=== PATIENT | male | born 1950 | race Caucasian/White ===

== ENCOUNTER → 2016-08-15 | Outpatient (CLI) | payer BC ==
[~2016-08-15] MED LIST: ACT30 PO; AMLO-110 PO; ASPEC81 PO; GLIP-199 PO; LISI-461 PO; METF-382 PO; MULT-506 PO; ROSU5TAB PO
--- NOTE | 2016-08-15 11:33 | DIAGNOSTIC IMAGING REPORT ---
CHEST 2 VIEWS ROUTINE CLINICAL HISTORY: COUGH COMPARISON STUDY: 05/16/2013 FINDINGS: The heart is normal in size. There is no focal pulmonary consolidation. There is no failure. There are no pleural effusions. There are minor left basilar atelectatic changes. A left basilar opacity is felt to relate to an old left rib fracture.[ IMPRESSION: No active disease in the chest. Electronically signed by: Dutch Rivas M.D. 08/15/2016 11:31 AM Dictated Date/Time: 08/15/2016 11:31 AM
== END | disposition home or self-care (01) ==
LOC: C.RADBC 10:56
PROVIDERS: ATTEND Internal Medicine Geriatric Medicine
DX: R05 Cough (principal)

== ENCOUNTER → 2016-08-26 | Outpatient (CLI) | payer BC | END | disposition home or self-care (01) | LOC: C.LABBC 07:29 | PROVIDERS: ATTEND Nurse Practitioner Adult Health | DX: N40.0 Benign prostatic hyperplasia without lower urinary tract symptoms (principal) ==

== ENCOUNTER → 2016-09-04 | Outpatient (CLI) | payer BC ==
[2016-09-04 10:38] LABS: BLOOD UREA NITROGEN 25 mg/dl (7-18); BUN/CREATININE RATIO 20.6 (10-20); CALCIUM 9.6 mg/dl (8.5-10.1); CARBON DIOXIDE 24 mmol/L (21-32); CHLORIDE 105 mmol/L (98-107); GLUCOSE 71 mg/dl (70-99); POTASSIUM 4.9 mmol/L (3.5-5.1); SODIUM 138 mmol/L (136-145)
--- NOTE | 2016-09-04 12:04 | DIAGNOSTIC IMAGING REPORT ---
CT soft tissue neck combination SOFT TISSUE NECK COMBO CLINICAL HISTORY: K11.21 Parotitis, acute Please get left parotid gland; pt. Had ac parotiditis TECHNIQUE: Transaxial acquisition pre and postcontrast administration. Multi axial reformatted images. COMPARISON STUDY: None FINDINGS: Unenhanced study shows no evidence for abnormal calcifications within the region of the salivary glands. The enhanced component of the study shows a slight degree of hematoma or hyperemia of the left parotid gland compared to the right. A be a trace amount of edema. There is no evidence for abscess or collection. Subcutaneous fat shows no infiltrative change. Submandibular glands are unremarkable. Glottic and subglottic regions are within normal limits. There is no evidence for airway compromise. Sternocleidomastoid musculature is symmetric. There is a 1.3 cm left thyroid nodule. IMPRESSION: 1. Subtle findings of mild inflammatory change of the left parotid. 2. No evidence for abscess or collection. 3. All remaining salivary glands are unremarkable. 4. No abnormal calcifications 5. 1.3 nodule left thyroid Electronically signed by: Arturo Gale M.D. 09/04/2016 12:03 PM Dictated Date/Time: 09/04/2016 11:58 AM
== END | disposition home or self-care (01) ==
LOC: C.CTS 09:56
PROVIDERS: ATTEND Internal Medicine Geriatric Medicine
DX: K11.21 Acute sialoadenitis (principal); I10 Essential (primary) hypertension; E04.1 Nontoxic single thyroid nodule

== ENCOUNTER → 2016-09-06 | Outpatient (CLI) | payer BC ==
[2016-09-06 11:14] LABS: BLOOD UREA NITROGEN 25 mg/dl (7-18); BUN/CREATININE RATIO 19.1 (10-20); CALCIUM 8.8 mg/dl (8.5-10.1); CARBON DIOXIDE 24 mmol/L (21-32); CHLORIDE 105 mmol/L (98-107); GLUCOSE 271 mg/dl (70-99); POTASSIUM 5.1 mmol/L (3.5-5.1); SODIUM 138 mmol/L (136-145)
== END | disposition home or self-care (01) ==
LOC: C.LABBC 07:30
PROVIDERS: ATTEND Internal Medicine Geriatric Medicine
DX: E11.9 Type 2 diabetes mellitus without complications (principal)

== ENCOUNTER → 2016-09-09 | Outpatient (CLI) | payer BC ==
--- NOTE | 2016-09-09 11:26 | DIAGNOSTIC IMAGING REPORT ---
THYROID ULTRASOUND HISTORY: Thyroid nodule E04.1 Solitary thyroid nodulewith FNA-non emergent (per central COMPARISON: 09/04/2016 CT FINDINGS: Right lobe: 4.8 cm maximum dimension. 2 macrocysts measuring no more than 2 mm. No evidence for dominant mass. Left lobe: Maximum dimension 4.7 cm. 1.5 x 1.3 cm complex nodule lower pole. Low suspicion 5 and 4 mm nodules mid and upper pole. Isthmus: No nodules. IMPRESSION: Lower pole left thyroid nodule containing punctate calcifications in having dimensions as noted. Fine-needle aspiration is suggested. Electronically signed by: Arturo Gale M.D. 09/09/2016 11:25 AM Dictated Date/Time: 09/09/2016 11:19 AM
== END | disposition home or self-care (01) ==
LOC: C.ULTRBC 09:57
PROVIDERS: ATTEND Internal Medicine Geriatric Medicine
DX: E04.1 Nontoxic single thyroid nodule (principal)

== ENCOUNTER → 2016-09-18 | Outpatient (CLI) | payer BC ==
--- NOTE | 2016-09-18 12:08 | DIAGNOSTIC IMAGING REPORT ---
Ultrasound guided thyroid aspiration GUIDANCE NEEDLE PLACEMENT CLINICAL HISTORY: LEFT THYROID NODULE, ULTR 09/09/16 thyroid nodule TECHNIQUE: Ultrasound-guided fine-needle aspiration COMPARISON STUDY: Soft tissue neck ultrasound dated 09/09/2016 FINDINGS: Under ultrasound guidance, a total of 3 passes were made to the partially calcified nodule within the posterior left thyroid lobe. The nodule was very hard and echotexture, creating difficulty in accessing the central substance of the nodule. There are no complications. Pathology is pending. IMPRESSION: Left thyroid fine-needle aspiration x3. If results are nondiagnostic due to the texture of the nodule, a six-month ultrasound follow-up is suggested as an alternative Electronically signed by: Arturo Gale M.D. 09/18/2016 12:07 PM Dictated Date/Time: 09/18/2016 12:05 PM
== END | disposition home or self-care (01) ==
LOC: C.ULTR 10:13
PROVIDERS: ATTEND Internal Medicine Geriatric Medicine
DX: E04.1 Nontoxic single thyroid nodule (principal)

== ENCOUNTER → 2016-10-11 | Outpatient (CLI) | payer BC ==
--- NOTE | 2016-10-11 13:06 | Discharge Instructions ---
Discharge Instructions Procedure Procedure Date: Oct 11, 2016. Reason for visit: Thyroid Nodule * To Do*. Discharge Discharge Date: Oct 11, 2016. Discharge Diagnosis: s/p thyroid nodule FNA Instructions Activity Recommendations: No limitations Return to School/Work: no limitations Recommended Home Diet: No Limitations Provider Instructions: ACTIVITY RECOMMENDATIONS: * Rest today. * Resume regular activity in one day. MEDICATIONS: * May take Tylenol or Ibuprofen as needed for pain. DIET: * Resume previous diet. SPECIAL CARE INSTRUCTIONS: Call your doctor if: * Temperature above 101 degrees F. * Pain not relieved by pain medicine ordered. * Increased drainage or redness from incision. * Notify your doctor with any questions or concerns. Call your doctor or go to the nearest Emergency Department if you experience: * Increased chest pain or shortness of breath. FOLLOW UP VISIT: Follow-up with Referring Physician as scheduled. Allergies Coded Allergies: Penicillins (Verified Allergy, Severe, SOB AND THROAT SWELLING, 06/27/16) Azalea Awad Recommendations: Call your doctor if: * Temperature above 101 degrees * Pain not relieved by pain medicine ordered * There is increased drainage or redness from any incision * You have any unanswered questions or concerns. Your Doctors Instructions noted above were prepared by provider Nguyễn Simon. Patient Signature Section: Patient Instructions Signature Page Too Naylor Patient (or Guardian) Signature/Date: I have read and understand the instructions given to me by my caregivers. Caregiver/RN/Doctor Signature/Date: The above-named patient and/or guardian has received patient instructions on this date. + Original Patient Signature Page (only) stays with chart. Please make copy for patient.
--- NOTE | 2016-10-11 13:29 | DIAGNOSTIC IMAGING REPORT ---
ULTRASOUND GUIDED FINE NEEDLE ASPIRATION OF LEFT LOBE THYROID NODULE CLINICAL HISTORY: Left lobe thyroid nodule. COMPARISON STUDY: Thyroid ultrasound September 09, 2016. PROCEDURE: Sonography of the thyroid gland again demonstrated the 1.5 cm nodule within the lower pole of the left thyroid lobe which contains numerous calcifications. This was targeted for fine needle aspiration. The procedure, risks and benefits were discussed with the patient. The patient agreed to the procedure and informed written obtained. The procedure was performed by Dr. Simon following a timeout. Skin overlying the left thyroid lobe was prepped and draped in sterile fashion and local anesthesia was achieved with 1% lidocaine. Under direct ultrasound guidance, 2 25-gauge fine needle aspirations of the nodule were performed. The samples were deemed preliminarily adequate by pathology. The patient tolerated the procedure well and no immediate complications were evident. IMPRESSION: Ultrasound guided fine needle aspiration of 1.5 cm left lobe thyroid nodule. Electronically signed by: Nguyễn Simon M.D. 10/11/2016 1:27 PM Dictated Date/Time: 10/11/2016 1:26 PM
== END | disposition home or self-care (01) ==
LOC: C.ULTR 12:38
DX: E04.1 Nontoxic single thyroid nodule (principal)

== ENCOUNTER → 2016-11-07 | Outpatient (CLI) | payer BC ==
[2016-11-07 13:30] LABS: BASO % 0.3 %; BASO ABS # 0.02 K/uL (0-0.2); COMPLETE YES; EOS % 2.9 %; HEMATOCRIT 39.3 % (42-52); IG% 0.1 %; LYMPH ABS # 1.64 K/uL (1.2-3.4); MEAN CELL VOLUME 93.8 fL (80-100); MEAN CORPUSCULAR HEMOGLOBIN 32.2 pg (25-34); MEAN CORPUSCULAR HGB CONC 34.4 g/dl (32-36); MEAN PLATELET VOLUME 11.2 fL (7.4-10.4); MONO % 10.4 %; NEUT % 62.3 %; PLATELET COUNT 283 K/uL (130-400); RED BLOOD COUNT 4.19 M/uL (4.7-6.1); WHITE BLOOD COUNT 6.84 K/uL (4.8-10.8)
[2016-11-07 14:01] LABS: ESTIMATED AVERAGE GLUCOSE 143 mg/dl; HA1C FLAG Normal (Normal)
[2016-11-07 14:01] LABS: URINE PROTIEN/CREAT RATIO 0.1 (0-0.2)
[2016-11-07 14:46] LABS: BLOOD UREA NITROGEN 31 mg/dl (7-18); BUN/CREATININE RATIO 26.1 (10-20); CARBON DIOXIDE 21 mmol/L (21-32); CHLORIDE 109 mmol/L (98-107); CHOLESTEROL 169 mg/dl (0-200); GLUCOSE 84 mg/dl (70-99); POTASSIUM 4.8 mmol/L (3.5-5.1); SODIUM 139 mmol/L (136-145); TRIGLYCERIDES 132 mg/dl (0-150); VERY LOW DENSITY LIPOPROT CALC 26 mg/dl
[2016-11-07 14:50] LABS: CHOLESTEROL/HDL RATIO 2.9; HDL CHOLESTEROL 58 mg/dl; LDL CHOLESTEROL CALCULATED 85 mg/dl
[2016-11-07 15:09] LABS: CALCIUM 10.5 mg/dl (8.5-10.1)
== END | disposition home or self-care (01) ==
LOC: C.LABBC 10:14
PROVIDERS: ATTEND Internal Medicine Geriatric Medicine
DX: E11.9 Type 2 diabetes mellitus without complications (principal); I10 Essential (primary) hypertension; D64.9 Anemia, unspecified; E78.5 Hyperlipidemia, unspecified

== ENCOUNTER → 2017-04-10 | Outpatient (CLI) | payer BC ==
--- NOTE | 2017-04-10 11:02 | DIAGNOSTIC IMAGING REPORT ---
THYROID ULTRASOUND HISTORY: E04.1 Solitary thyroid nodule Please perform 6month follow up ult COMPARISON: Thyroid ultrasound 09/09/2016. FINDINGS: Right lobe: 4.7 x 2.3 x 1.7 cm. No solid nodules. A few tiny subcentimeter cysts, unchanged. Left lobe: 4.4 x 2.2 x 2.0 cm. Dominant solid 1.7 x 1.6 X 1.6 cm nodule within the mid to lower pole is again noted. This previously measured 1.5 x 1.3 x 1.2 cm. This contains punctate echogenic foci which may represent colloid rather than calcification. Isthmus: 2 mm in thickness. No nodules. IMPRESSION: Slight increase in size in the 1.7 x 1.6 X 1.6 cm nodule within the left thyroid lobe. Electronically signed by: Tom Tran M.D. 04/10/2017 11:01 AM Dictated Date/Time: 04/10/2017 10:54 AM
== END | disposition home or self-care (01) ==
LOC: C.ULTRBC 10:30
DX: E04.1 Nontoxic single thyroid nodule (principal)

== ENCOUNTER → 2017-04-30 | Outpatient (CLI) | payer BC ==
--- NOTE | 2017-04-30 12:23 | DIAGNOSTIC IMAGING REPORT ---
ULTRASOUND GUIDED FINE NEEDLE ASPIRATION OF LEFT LOBE THYROID NODULE CLINICAL HISTORY: Thyroid nodule. COMPARISON STUDY: Thyroid ultrasound April 10, 2017 and ultrasound-guided fine needle aspiration of October 11, 2016. PROCEDURE: Sonography of the thyroid gland demonstrated the 1.7 cm nodule within the lower pole of the left thyroid lobe which contains echogenic foci which could reflect calcifications or colloid. This was targeted for fine needle aspiration. The procedure, risks and benefits were discussed with the patient. The patient agreed to the procedure and informed written consent was obtained. The procedure was performed by Dr. Simon following a timeout. Skin was prepped and draped in sterile fashion and local anesthesia was achieved with 1% lidocaine. Under direct ultrasound guidance, 2 22-gauge fine-needle aspirations were performed. Samples were deemed preliminarily adequate by pathology. The patient tolerated the procedure well and no immediate complications were evident. IMPRESSION: Ultrasound guided fine needle aspiration of 1.7 cm left lobe thyroid nodule. Electronically signed by: Nguyễn Simon M.D. 04/30/2017 12:21 PM Dictated Date/Time: 04/30/2017 12:20 PM
== END | disposition home or self-care (01) ==
LOC: C.ULTR 10:48
DX: E04.1 Nontoxic single thyroid nodule (principal)

== ENCOUNTER → 2017-11-17 | Outpatient (CLI) | payer BC ==
[2017-11-17 11:20] LABS: BASO % 0.3 %; BASO ABS # 0.02 K/uL (0-0.2); EOS % 2.6 %; HEMATOCRIT 40.2 % (42-52); HEMOGLOBIN 13.6 g/dL (14.0-18.0); IG# 0.02 K/uL (0.00-0.02); LYMPH % 19.3 %; LYMPH ABS # 1.51 K/uL (1.2-3.4); MEAN CELL VOLUME 94.4 fL (80-100); MEAN CORPUSCULAR HEMOGLOBIN 31.9 pg (25-34); MEAN CORPUSCULAR HGB CONC 33.8 g/dl (32-36); MEAN PLATELET VOLUME 10.7 fL (7.4-10.4); MONO % 9.2 %; MONO ABS # 0.72 K/uL (0.11-0.59); NEUT % 68.3 %; NEUT ABS # 5.37 K/uL (1.4-6.5); PLATELET COUNT 306 K/uL (130-400); RED CELL DISTRIBUTION WIDTH CV 13.9 % (11.5-14.5); RED CELL DISTRIBUTION WIDTH SD 47.3 fL (36.4-46.3); WHITE BLOOD COUNT 7.84 K/uL (4.8-10.8)
[2017-11-17 11:33] LABS: ALBUMIN 4.1 gm/dl (3.4-5.0); ALT/SGPT 43 U/L (12-78); AST/SGOT 26 U/L (15-37); BLOOD UREA NITROGEN 27 mg/dl (7-18); CALCIUM 9.3 mg/dl (8.5-10.1); CARBON DIOXIDE 21 mmol/L (21-32); CREATININE 1.33 mg/dl (0.60-1.40); GLUCOSE 97 mg/dl (70-99); HEMOGLOBIN A1C 6.8 % (4.5-5.6); POTASSIUM 4.5 mmol/L (3.5-5.1); SODIUM 136 mmol/L (136-145)
[2017-11-17 11:44] LABS: ALKALINE PHOSPHATASE 60 U/L (45-117); TOTAL PROTEIN 8.3 gm/dl (6.4-8.2)
== END | disposition home or self-care (01) ==
LOC: C.LABBC 07:12
PROVIDERS: ATTEND Internal Medicine Geriatric Medicine
DX: E11.42 Type 2 diabetes mellitus with diabetic polyneuropathy (principal); I10 Essential (primary) hypertension; D64.9 Anemia, unspecified; E83.52 Hypercalcemia

== ENCOUNTER → 2018-02-16 | Outpatient (CLI) | payer BC ==
[~2018-02-16] MED LIST changes: -AMLO-110 PO; +AMLO5TAB3 PO
--- NOTE | 2018-02-16 09:28 | DIAGNOSTIC IMAGING REPORT ---
KUB HISTORY: Follow-up study in a patient with history of nephrolithiasis N40.0 COMPARISON: CT abdomen and pelvis 06/02/2016. FINDINGS: The bowel gas pattern is non-obstructive. Subcentimeter metallic radiodensity projecting over the left abdominal wall is unchanged. There is no organomegaly. No renal calculi. No ureteral calculi. No pneumoperitoneum or pneumatosis. No fracture. Posterior cassy and screw fusion hardware of the lumbar spine. Left hip arthroplasty. Convex right curvature about the thoracolumbar junction. Moderate right hip osteoarthritis. Calcified granulomata about the liver. Mild to moderate stool volume of the right hemicolon. IMPRESSION: 1. Nonobstructive bowel gas pattern. 2. No urolith. 3. Calcified granulomata about the liver redemonstrated. Electronically signed by: Samir Aldrich M.D. 02/16/2018 9:27 AM Dictated Date/Time: 02/16/2018 9:25 AM
== END | disposition home or self-care (01) ==
LOC: C.RADBC 08:40
PROVIDERS: ATTEND Urology
DX: N40.0 Benign prostatic hyperplasia without lower urinary tract symptoms (principal)